=== PATIENT | male | born 1995 | race Caucasian/White ===

== ENCOUNTER 2019-04-16 13:41 | Outpatient (CLI) | payer OTHER ==
--- NOTE | 2019-04-16 16:08 | MRI ---
RIGHT KNEE MRI WITHOUT IV CONTRAST: 04/16/19 HISTORY: M25.561, medial joint line tenderness right knee, right knee pain for years. FINDINGS: No abnormal joint effusion. No significant articular cartilage defects. Medial and lateral menisci, a nterior and posterior cruciate ligaments, collateral ligament complexes, and quadriceps and patellar tendons are intact. No abnormal marrow signal. No acute osteochondral defect. IMPRESSION: Unremarkable knee MRI. No MRI evidence for significant acute internal derangement. POS: [facility]RE
== END 2019-04-16 13:42 | disposition home or self-care (01) ==
LOC: BICMRI 13:41
DX: S83.206D Unspecified tear of unspecified meniscus, current injury, right knee, subsequent encounter (principal); R29.898 Other symptoms and signs involving the musculoskeletal system